=== PATIENT | male | born 1995 | race Two or more races ===

== ENCOUNTER 2017-07-15 12:39 | Emergency (ER) | payer OTHER ==
[~2017-07-15] VITALS: Ht 165.1 cm; Wt 70.3 kg
[2017-07-15 12:56] VITALS: BP 146/75; Ht 165.1 cm; Wt 70.3 kg
== END 2017-07-15 17:00 | disposition home or self-care (01) ==
LOC: ED 12:39
DX: S61.224A Laceration with foreign body of right ring finger without damage to nail, initial encounter (principal); S61.212A Laceration without foreign body of right middle finger without damage to nail, initial encounter; S61.216A Laceration without foreign body of right little finger without damage to nail, initial encounter; W22.8XXA Striking against or struck by other objects, initial encounter; Y93.89 Activity, other specified; Y99.8 Other external cause status; Y92.89 Other specified places as the place of occurrence of the external cause
CPT/HCPCS: J2001; Q0092